=== PATIENT | female | born 1990 | race Caucasian/White ===

== ENCOUNTER 2025-02-24 19:22 | Inpatient (IN) | payer OTHER ==
[2025-02-24 19:55] VITALS: BMI 27.4
[2025-02-24] MEDS ORDERED: MAG HYDROX/AL HYDROX/SIMETH 30 ML UNIT-DOSE CUP PO PRN (20:11)
[2025-02-24] MEDS ORDERED: LOPERAMIDE HCL 2 MG CAPSULE PO PRN (20:11)
[2025-02-24] MEDS ORDERED: IBUPROFEN 400 MG TABLET (FP) PO PRN (20:11)
[2025-02-24] MEDS ORDERED: POLYETHYLENE GLYCOL (HEALTHYLAX) 3350 17 GM PACKET PO PRN (20:11)
[2025-02-24] MEDS ORDERED: ONDANSETRON *ODT* 4 MG TABLET SL PRN (20:11)
[2025-02-24] MEDS ORDERED: NALOXONE (NARCAN) HCL 4 MG/0.1 ML SPRAY NS PRN (20:11)
[2025-02-24] MEDS ORDERED: BENZOCAINE/MENTHOL (CHLORASEPTIC ) LOZENGE MM PRN (20:11)
[2025-02-24] MEDS ORDERED: BISMUTH SUBSALICYLATE 524 MG/30 ML PO PRN (20:11)
[2025-02-24] MEDS ORDERED: DICYCLOMINE HCL 10 MG CAPSULE PO PRN (20:11)
[2025-02-24] MEDS ORDERED: MAGNESIUM HYDROX 2400MG/30ML ORAL SUSPENSION 30 ML CUP PO PRN (20:11)
[2025-02-24] MEDS ORDERED: NICOTINE POLACRILEX 2 MG LOZENGE BC PRN (20:11)
[2025-02-24] MEDS ORDERED: ACETAMINOPHEN 325 MG TABLET (FP) PO PRN (20:11)
[2025-02-24] MEDS ORDERED: NICOTINE POLACRILEX 2 MG GUM BUC PRN (20:11)
[2025-02-24] MEDS ORDERED: BENZONATATE 200 MG CAPSULE PO PRN (20:11)
[2025-02-24] MEDS ORDERED: guaiFENesin 600 MG TABLET.ER (FP) PO PRN (20:11)
[2025-02-24] MEDS ORDERED: IBUPROFEN 600 MG TABLET (FP) PO PRN (20:11)
[2025-02-24] MEDS ORDERED: levETIRAcetam 500 MG TABLET (FP) PO ONE ×2 (20:23→22:40)
[2025-02-24] MEDS: levETIRAcetam 500 MG TABLET (FP) PO ONE (20:24)
[2025-02-24] MEDS: levETIRAcetam 500 MG TABLET (FP) PO SCH (22:41)
[2025-02-24] MEDS: SULFAMETHOXAZOLE/TRIMETHOPRIM 800MG/160MG D.S. TABLET PO SCH (22:59)
[2025-02-24] MEDS: MELATONIN 5 MG TABLETS PO SCH (22:59)
[2025-02-24] MEDS: THIAMINE 100 MG TABLET PO SCH (22:59)
[2025-02-25] MEDS: PANTOPRAZOLE 40 MG TABLET PO SCH (07:48)
[2025-02-25] MEDS: PRENATAL VITAMINS W/ FOLIC ACID TABLET (FP) PO SCH (10:16)
[2025-02-25] MEDS: FOLIC ACID 1 MG TABLET (FP) PO SCH (10:17)
[2025-02-25] MEDS: GABAPENTIN 100 MG CAPSULE PO ONE (10:18)
[2025-02-25 10:19] LABS: MCHC 32.5 g/dl (32.2-35.5); MEAN CELL VOLUME 89.9 fl (79.4-94.8); MEAN PLT VOLUME 10.6 fl (9.4-12.3); RDW 13.5 % (12.1-16.8)
[2025-02-25 10:27] LABS: GLUCOSE,RANDOM 68.0 mg/dL (74-106); TOT PROT 6.9 g/dl (6.4-8.2)
[2025-02-25 10:28] LABS: CO2 22.0 mmol/L (21-32)
[2025-02-25 10:30] LABS: ALK PHOS 74.0 U/L (40-150)
[2025-02-25 10:32] LABS: SGOT/AST 69.0 U/L (5-34); SGPT/ALT 42.0 U/L (0-55)
[2025-02-25 10:33] LABS: CREATININE 0.74 mg/dL (0.55-1.3)
[2025-02-25] MEDS: METHOCARBAMOL 500 MG TABLET PO PRN (13:02)
[2025-02-25] MEDS: hydrOXYzine PAMOATE 25 MG CAPSULE (FP) PO PRN (13:02)
[2025-02-25] MEDS: GABAPENTIN 100 MG CAPSULE PO SCH (13:02)
[2025-02-25] MEDS: QUEtiapine FUMARATE 100 MG TABLET (FP) PO SCH (22:14)
[2025-02-25] MEDS: ATORVASTATIN CA 10 MG TABLET (FP) PO SCH (22:14)
[2025-02-26 06:10] VITALS: RESP 16; TEMP 97.6
[2025-02-26 10:20] VITALS: BP 132/90; PULSE 80
== END 2025-02-26 14:57 | disposition left against medical advice (07) | DRG 770 ==
LOC: YASAS 19:22 → Y3N 21:10
PROVIDERS: ADMIT Neuromusculoskeletal Medicine & OMM; ATTEND Allergy & Immunology
PROC: HZ2ZZZZ Detoxification Services for Substance Abuse Treatment (ICD-10-PCS; principal; 2025-02-24)
DX: F10.230 Alcohol dependence with withdrawal, uncomplicated (principal); F17.210 Nicotine dependence, cigarettes, uncomplicated; F33.0 Major depressive disorder, recurrent, mild; F41.9 Anxiety disorder, unspecified; E78.5 Hyperlipidemia, unspecified; Z88.8 Allergy status to other drugs, medicaments and biological substances
CPT/HCPCS: 36415; 80053; 80307; 85027; 86780; 93005; 93010

== ENCOUNTER 2025-02-26 23:05 | Emergency (ER) | payer OTHER ==
[2025-02-26 23:21] VITALS: RESP 22; TEMP 97.5; BMI 29.2
[2025-02-27] MEDS ORDERED: HALOPERIDOL LACTATE 5 MG/ML ONE (00:20)
[2025-02-27] MEDS: HALOPERIDOL LACTATE 5 MG/ML IM ONE (00:29)
[2025-02-27] MEDS ORDERED: DIPHTH,PERTUSS(ACELL),TET 0.5 ML DISP.SYRIN IM ONE (02:15)
[2025-02-27] MEDS: DIPHTH,PERTUSS(ACELL),TET 0.5 ML DISP.SYRIN IM ONE (02:17)
[2025-02-27 05:17] VITALS: BP 77/63; PULSE 79
== END 2025-02-27 06:44 | disposition home or self-care (01) ==
LOC: JER 23:05
PROC: 3E023GC Introduction of Other Therapeutic Substance into Muscle, Percutaneous Approach (ICD-10-PCS; principal; 2025-02-27)
PROC: 3E0234Z Introduction of Serum, Toxoid and Vaccine into Muscle, Percutaneous Approach (ICD-10-PCS; 2025-02-27)
DX: S00.212A Abrasion of left eyelid and periocular area, initial encounter (principal); F10.20 Alcohol dependence, uncomplicated; Z23 Encounter for immunization; Y04.8XXA Assault by other bodily force, initial encounter
CPT/HCPCS: 70450-TC; 70486-TC; 73110-TC-LT-FY; 73130-TC-LT-FY; 90471; 90715; 96372; 99285-25